=== PATIENT | male | born 1965 | race Caucasian/White ===

== ENCOUNTER → 2017-04-17 | Day surgery (SDC) | payer OTHER ==
[~2017-04-17] VITALS: Ht 175.3 cm; Wt 120.8 kg
[2017-04-17 07:31] LABS: HGB 15.2 g/dl (13.2-18.0); MCHC 35.3 g/dL (32.0-36.0); MCV 82.1 fL (78.0-100.0); MPV 10.3 fL (6.0-9.5); RBC 5.24 M/uL (4.70-6.00); RDW 13.9 % (11.5-14.0); WBC 6.5 K/uL (4.0-10.5)
[2017-04-17 07:55] LABS: ALBUMIN 4.3 g/dL (3.5-5.0); BILIRUBIN - TOTAL 0.6 mg/dL (0.1-1.0); CREATININE 0.9 mg/dL (0.7-1.2); GLOBULIN (CALCULATION) 2.8 g/dL (2.2-4.2); TOTAL PROTEIN 7.1 g/dL (6.4-8.3)
[2017-04-17 07:57] LABS: POTASSIUM 4.8 mmol/L (3.5-5.1)
== END | disposition home or self-care (01) ==
LOC: FAS 07:12
PROVIDERS: Surgery
DX: K42.0 Umbilical hernia with obstruction, without gangrene (principal); I10 Essential (primary) hypertension; Z79.899 Other long term (current) drug therapy
CPT/HCPCS: 36415; 80053; 93005; C1781; J0690; J1170; J2405; J2704; J3010

== ENCOUNTER 2021-11-07 14:10 | Emergency (ER) | payer OTHER ==
[~2021-11-07] VITALS: Ht 175.3 cm; Wt 122.5 kg
[2021-11-07] MEDS ORDERED: CANDICIDAL CAP1 EACH PO (14:22)
[2021-11-07] MEDS ORDERED: LOSARTAN-HCTZ1 EAC1 PO (14:22)
[2021-11-07 14:51] LABS: BASOPHIL 0.8 % (0-2); HCT 49.6 % (42.0-52.0); HGB 17.2 g/dl (13.2-18.0); LYMPHOCYTE 34.6 % (15-48); MCH 29.3 pg (25.0-31.0); MCHC 34.7 g/dL (32.0-36.0); MCV 84.4 fL (78.0-100.0); MONOCYTE 9.2 % (0-12); MPV 10.9 fL (6.0-9.5); NEUTROPHIL 54.2 % (41-80); NRBC 0; PLT 237 K/uL (150-400); RBC 5.88 M/uL (4.70-6.00); RDW 13.3 % (11.5-14.0); WBC 10.3 K/uL (4.0-10.5)
[2021-11-07 17:26] LABS: ALBUMIN 4.7 g/dL (3.4-5.0); ALKALINE PHOSHATASE 80 U/L (46-116); ALT 161 U/L (16-63); AST 67 U/L (15-37); BUN 19 mg/dL (7-18); BUN/CREAT RATIO (CALC) 17.1 RATIO; C-REACTIVE PROTEIN <0.20 mg/dL (<=0.90); CHLORIDE 98 mmol/L (98-107); CO2 (BICARBONATE) 23 mmol/L (21-32); CREATININE 1.11 mg/dL (0.67-1.17); GLOBULIN (CALCULATION) 3.5 g/dL; GLUCOSE 116 mg/dL (74-106); LDH 319 U/L (85-227); LIPASE 121 U/L (73-393); TOTAL PROTEIN 8.2 g/dL (6.4-8.2)
== END 2021-11-07 20:50 | disposition home or self-care (01) ==
LOC: FER 14:10
PROVIDERS: Emergency Medicine
DX: R07.89 Other chest pain (principal); I10 Essential (primary) hypertension; Z20.822 Contact with and (suspected) exposure to COVID-19
CPT/HCPCS: 36415; 71045; 80053; 82728; 83615; 83690; 83880; 84484; 85025; 85379; 86140; 93005; U0002